=== PATIENT | male | born 1975 ===

== ENCOUNTER 2017-09-29 10:11 | Emergency (ER) | payer OTHER ==
[2017-09-29 10:22] VITALS: BP 171/92; PULSE 82; RESP 16; TEMP 98.9; O2SAT 95
[2017-09-29] MEDS ORDERED: Tetanus/Diphtheria Toxoids 0.5 ml Syringe IM ONE ×2 (10:45→10:50)
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
[2017-09-29] MEDS ORDERED: Bacitracin 500 Units/gm Oint Foilpak UD ONE (11:24)
--- NOTE | 2017-09-29 13:02 | RAD ---
PROCEDURE: Left Knee Radiographs. HISTORY: Pain. COMPARISON: None. FINDINGS: BONES: Bone alignment and mineralization are normal. There is no acute displaced fracture or bone destruction. JOINTS: Normal. No osteoarthritis. JOINT EFFUSION: None. OTHER FINDINGS: None. IMPRESSION: No acute fracture or dislocation.
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
== END 2017-09-29 12:02 | disposition home or self-care (01) ==
LOC: C.ER 10:11
DX: S81.812A Laceration without foreign body, left lower leg, initial encounter (principal); W01.198A Fall on same level from slipping, tripping and stumbling with subsequent striking against other object, initial encounter; Y92.9 Unspecified place or not applicable; Z23 Encounter for immunization
CPT/HCPCS: 12032; 73562; 73590; 90471; 90714; 96372; 99284; J1885

== ENCOUNTER 2017-10-08 11:03 | Emergency (ER) | payer OTHER, SELFPAY ==
[2017-10-08 11:10] VITALS: BP 155/83; PULSE 83; RESP 16; TEMP 98.3; O2SAT 98
[2017-10-08] MEDS ORDERED: Bacitracin 500 Units/gm Oint Foilpak UD ONE (11:36)
--- NOTE | 2017-10-08 11:37 | C.PDOC ---
History Of Present Illness 42 year old male presents to the ED for a staple removal. Patient received edgar to his left lower leg after he sustained a fall on 09/29. Patient denies fever, chills, pain or drainage around the area. Time Seen by Provider: 10/08/17 11:20 Chief Complaint (Nursing): Suture/Staple Removal History Per: Patient History/Exam Limitations: no limitations Onset/Duration Of Symptoms: Days Ago Current Symptoms Are (Timing): Still Present Quality Of Symptoms: denies: Painful, Draining Additional History Per: Patient Past Medical History Reviewed: Historical Data, Nursing Documentation, Vital Signs Vital Signs: Last Vital Signs Temp 98.3 F 10/08/17 11:08 Pulse 83 10/08/17 11:08 Resp 16 10/08/17 11:08 BP 155/83 H 10/08/17 11:08 Pulse Ox 98 10/08/17 16:53 - Medical History PMH: No Chronic Diseases Surgical History: No Surg Hx Family History: States: Unknown Family Hx - Social History Hx Alcohol Use: Yes Hx Substance Use: No - Immunization History Hx Tetanus Toxoid Vaccination: No Hx Influenza Vaccination: No Hx Pneumococcal Vaccination: No Review Of Systems Constitutional: Negative for: Fever, Chills Skin: Positive for: Other (staple removal ) Physical Exam - Physical Exam Appears: Non-toxic, No Acute Distress Skin: Normal Color, Warm, Dry, Other (left posterior calf: healing laceration with one staple in middle. staple is intact, with marginal erythema. no drainage noted. ) Head: Atraumatic, Normacephalic Eye(s): bilateral: Normal Inspection Extremity: Normal ROM, No Tenderness, No Calf Tenderness, Capillary Refill ( less than 2 seconds ), No Swelling Pulses: Left Dorsalis Pedis: Normal, Right Dorsalis Pedis: Normal Neurological/Psych: Oriented x3, Normal Speech, Normal Cognition, Normal Sensation Gait: Steady ED Course And Treatment O2 Sat by Pulse Oximetry: 98 (on RA) Pulse Ox Interpretation: Normal Progress Note: Contrary to triage, patient's left posterior calf does not appears erythematous or swollen and there is no tenderness to the area during physical examination. One staple removed from the area successfully. Patient tolerated well and is stable for discharge. He is advised to follow up with his PMD within 1-2 days for further evaluation. Disposition - Disposition Disposition: HOME/ ROUTINE Disposition Time: 11:35 Condition: STABLE Additional Instructions: Follow up with your PMD within 1-2 days. Return to ED if feel worse. Prescriptions: Mupirocin 2% Ointment [Bactroban Ointment] 1 appl TP BID #1 tube Instructions: Staple Removal Forms: [employer] (Czech) Print Language: STATELESS - Clinical Impression Clinical Impression: Removal of suture - PA / BOOK AGENT / Resident Statement MD/DO has reviewed & agrees with the documentation as recorded. - Scribe Statement The provider has reviewed the documentation as recorded by the Scribe (Ashley Ochoa) All medical record entries made by the Scribe were at my direction and personally dictated by me. I have reviewed the chart and agree that the record accurately reflects my personal performance of the history, physical exam, medical decision making, and the department course for this patient. I have also personally directed, reviewed, and agree with the discharge instructions and disposition.
== END 2017-10-08 11:40 | disposition home or self-care (01) ==
LOC: C.ER 11:03
DX: Z48.02 Encounter for removal of sutures (principal)